=== PATIENT | male | born 1995 | race Caucasian/White ===

== ENCOUNTER 2018-03-02 15:30 | Emergency (ER) | payer OTHER ==
[~2018-03-02] VITALS: Ht 165.1 cm; Wt 76.8 kg
[2018-03-02 15:32] VITALS: TEMP 36.8; Ht 165.1 cm; Wt 76.8 kg
[2018-03-02] MEDS ORDERED: LIDOCAINE/EPINEPH/TETRACAINE 1 EA SYR EXT STA (15:44)
[2018-03-02] MEDS ORDERED: OPTIRAY 320 IV PRN (16:00)
[2018-03-02 16:19] LABS: ISTAT CREATININE 1.1 mg/dl (0.6-1.3); ISTAT IONIZED CALCIUM 1.19 mmol/l (1.12-1.32); ISTAT POTASSIUM 3.7 mEq/L (3.3-5.0)
[2018-03-02 16:23] VITALS: O2SAT 99
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
[2018-03-02] MEDS ORDERED: SODIUM CHLORIDE 0.9% 1000ML 1,000 ML IV STA (16:27)
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
[2018-03-02] MEDS ORDERED: LIDOCAINE 1% BUFFERED INJ 20 ML VIAL INFIL STA (17:31)
[2018-03-02 20:02] VITALS: BP 133/78
[2018-03-02 21:24] VITALS: PULSE 65; O2SAT 100
== END 2018-03-02 20:33 | disposition short-term general hospital (02) ==
LOC: C.EDB 15:33 → C.EDD 20:33
DX: S01.81XA Laceration without foreign body of other part of head, initial encounter (principal); S80.212A Abrasion, left knee, initial encounter; S01.511A Laceration without foreign body of lip, initial encounter; S02.5XXA Fracture of tooth (traumatic), initial encounter for closed fracture; T14.8XXA Other injury of unspecified body region, initial encounter; V18.0XXA Pedal cycle driver injured in noncollision transport accident in nontraffic accident, initial encounter; R48.8 Other symbolic dysfunctions